=== PATIENT | female | born 1980 | race Caucasian/White ===

== ENCOUNTER 2020-12-16 07:43 | Emergency (ER) | payer MEDICAID, OTHER ==
[~2020-12-16] VITALS: Ht 165.1 cm; Wt 54.4 kg
--- NOTE | 2020-12-16 07:50 | NUR ---
AT BEDSIDE FOR ASSESSMENT
[2020-12-16] MEDS ORDERED: ASPIRIN (07:53)
[2020-12-16] MEDS ORDERED: IV NORMAL SALINE 1000 ML BAG IV ONE (08:00)
--- NOTE | 2020-12-16 08:06 | NUR ---
Patient refused blood draw and IV fluids at this time
--- NOTE | 2020-12-16 09:00 | NUR ---
Patient continues to refuse care and states she needs more time to decided whether she wants her blood drawn despite repetative explaining of risk and benefits by staff
[2020-12-16] MEDS ORDERED: CHLORDIAZEPOXIDE HCL 25 MG CAPSULE PO ONE (09:30)
[2020-12-16] MEDS ORDERED: CHLORDIAZEPOXIDE HCL 25 MG CAPSULE ONE (09:35)
--- NOTE | 2020-12-16 09:50 | NUR ---
Patient is AOx4, refusing all of MD's recommendation. AMA form was given by MD but patient refused to sign the AMA form as well. MD is aware.
--- NOTE | 2020-12-16 10:00 | NUR ---
Excessive anxiety noted, Md orders anti-anxiety medication, patient continues to refuse care
--- NOTE | 2020-12-16 11:01 | NUR ---
patient continues to refuse care but will not leave
--- NOTE | 2020-12-16 11:05 | NUR ---
Patient left facility to make a phone call and states she will be back in 5 min
--- NOTE | 2020-12-16 12:13 | NUR ---
Patient does not wish to proceed with medical care recommended by Dr. Cruz. Patient given information related to possible complications, up to and including , which could occur as a result of leaving the hospital at this time. Patient verbalizes understanding of risks involved due to leaving against medical advice. Patient has refused to sign AMA form.
[2020-12-16 12:17] VITALS: BP 106/62
[2020-12-16] MEDS ORDERED: SUMA100T16 PO (21:20)
[2020-12-16] MEDS ORDERED: NAPR-1164 PO (21:21)
== END 2020-12-16 12:17 | disposition left against medical advice (07) ==
LOC: ER 07:43
DX: R19.7 Diarrhea, unspecified (principal); R51.9 Headache, unspecified; F41.0 Panic disorder [episodic paroxysmal anxiety]; Z86.16 Personal history of COVID-19
CPT/HCPCS: 70450; A4663; J7030

== ENCOUNTER 2020-12-16 20:07 | Emergency (ER) | payer OTHER ==
[~2020-12-16] VITALS: Ht 165.1 cm; Wt 56.7 kg
[~2020-12-16 20:07] MED LIST: ASPIRIN
[2020-12-16] MEDS ORDERED: diphenhydrAMINE 50 MG/1 ML VIAL IV ONE (20:30)
[2020-12-16] MEDS ORDERED: METOCLOPRAMIDE HCL 10 MG/2 ML VIAL IV ONE (20:30)
[2020-12-16] MEDS ORDERED: IV NORMAL SALINE 1000 ML BAG IV ONE (20:30)
[2020-12-16] MEDS ORDERED: KETOROLAC TROMETHAMINE 30 MG INJ IVP ONE (20:30)
--- NOTE | 2020-12-16 20:30 | NUR ---
Patient refusing treatment suggested by the doctor, MD Xiong made aware.
[2020-12-16] MEDS ORDERED: SUMA100T16 PO (21:20)
[2020-12-16] MEDS ORDERED: NAPR-1164 PO (21:21)
[2020-12-16] MEDS ORDERED: diphenhydrAMINE 25 MG CAP PO ONE ×2 (21:30→21:34)
[2020-12-16] MEDS ORDERED: NAPROXEN 500 MG TABLET PO ONE (21:30)
[2020-12-16] MEDS ORDERED: SUMATRIPTAN SUCCINATE 50 MG TABLET PO ONE (21:30)
[2020-12-16] MEDS ORDERED: SUMATRIPTAN SUCCINATE 50 MG TABLET ONE (21:34)
[2020-12-16] MEDS ORDERED: NAPROXEN 500 MG TABLET ONE (21:35)
--- NOTE | 2020-12-16 21:40 | NUR ---
Patient discharged to home in stable condition. Written and verbal after care instructions given. Patient verbalizes understanding of instructions. Stressed follow up or return to ER for worsening s/s. Patient out of ER with steady gait, no acute signs of distress, VSS, all belongings taken, provided with a prescription.
[2020-12-16 21:57] VITALS: BP 140/81
== END 2020-12-16 21:57 | disposition home or self-care (01) ==
LOC: ER 20:07
DX: G43.909 Migraine, unspecified, not intractable, without status migrainosus (principal); Z88.8 Allergy status to other drugs, medicaments and biological substances; Z86.19 Personal history of other infectious and parasitic diseases
CPT/HCPCS: 99284; Q0163; A4663

== ENCOUNTER 2020-12-17 14:23 | Inpatient (IN) | payer OTHER ==
[~2020-12-17] VITALS: Ht 165.1 cm; Wt 56.7 kg
[~2020-12-17 14:23] MED LIST changes: +NAPR-1164 PO; +SUMA100T16 PO
--- NOTE | 2020-12-17 14:45 | NUR ---
at bedside for assessment
--- NOTE | 2020-12-17 14:50 | NUR ---
Lab at bedside for blood draw, patient refusing IV at this time
[2020-12-17 15:18] LABS: BASOPHILS % (AUTO) 0.2 % (0.0-2.0); HEMATOCRIT 35.6 % (31.2-41.9); HEMOGLOBIN 12.3 g/dL (10.9-14.3); LYMPHOCYTES # (AUTO) 1.2 K/uL (20.0-40.0); LYMPHOCYTES % (AUTO) 15.8 % (20.5-51.5); MEAN CORPUSCULAR HEMOGLOBIN 31.5 uug (24.7-32.8); MEAN CORPUSCULAR HGB CONC 34 g/dL (32.3-35.6); MEAN CORPUSCULAR VOLUME 91.5 fL (75.5-95.3); MONOCYTES # (AUTO) 0.7 K/uL (2.0-10.0); MONOCYTES % (AUTO) 8.4 % (0.0-11.0); NEUTROPHILS % (AUTO) 75.6 % (38.5-71.5); PLATELET COUNT (AUTO) 255 K/uL (179-408); RED BLOOD CELL COUNT(AUTO) 3.89 MIL/uL (3.63-4.92); WHITE BLOOD COUNT (AUTO) 7.9 K/uL (3.8-11.8)
[2020-12-17 15:25] LABS: CREATININE 0.8 mg/dL (0.6-1.3); POTASSIUM 3.7 mmol/L (3.5-5.1)
[2020-12-17] MEDS ORDERED: IOHEXOL 350 100 ML INFUS..BTL ONE (16:00)
[2020-12-17] MEDS ORDERED: IV NORMAL SALINE 250 ML IV ONE (16:00)
[2020-12-17] MEDS ORDERED: SWABABLE VALVE TRANSFER SET EA MC ONE (16:01)
--- NOTE | 2020-12-17 16:35 | NUR ---
Patient taken to get CTA of brain and carotids ar this time
[2020-12-17] MEDS ORDERED: IV NORMAL SALINE 500 ML BAG IV ONE (18:00)
[2020-12-17] MEDS ORDERED: ASPIRIN 325 MG TABLET PO ONE (18:00)
[2020-12-17] MEDS ORDERED: ASPIRIN 325 MG TABLET ONE (18:03)
--- NOTE | 2020-12-17 18:04 | NUR ---
No signs of acute distress noted, patient noted sitting in chair in room
--- NOTE | 2020-12-17 18:31 | NUR ---
Patient refusing aspirin 325mg and IV fluids at this time
[2020-12-17] MEDS ORDERED: ONDANSETRON 4 MG/2 ML VIAL IV PRN (19:00)
[2020-12-17] MEDS ORDERED: MAGNESIUM HYDROXIDE 30 ML LIQUID UDC PO PRN (19:00)
[2020-12-17] MEDS ORDERED: ACETAMINOPHEN 325 MG TABLET PO PRN (19:00)
[2020-12-17] MEDS ORDERED: HYDROCODONE/APAP 5-325MG TABLET PO PRN (19:00)
[2020-12-17] MEDS ORDERED: Z GUARD REMEDY PASTE 57 GM TUBE TOP PRN (19:00)
--- NOTE | 2020-12-17 19:23 | NUR ---
Patient does not wish to proceed with medical care recommended by Dr. Peters. Patient given information related to possible complications, up to and including , which could occur as a result of leaving the hospital at this time. Patient verbalizes understanding of risks involved due to leaving against medical advice. Patient has signed AMA form.
--- NOTE | 2020-12-17 20:00 | NUR ---
Pt stated she decided to stay and get admitted for the MRI tomorrow.
--- NOTE | 2020-12-17 21:40 | NUR ---
Report given to Nasrin CLEMENTS Tele.
--- NOTE | 2020-12-18 00:30 | NUR ---
PATIENT ARRIVED FROM ER VIA GURNEY ,PATIENT AAOX4.ORIENTED TO ROOM AND EQUIPMENT AND CALL [facility] .BELONGING INVENTORY DONE BY SOLUTIONS ARCHITECT AT B/S . V/S DONE WNL .PLACED HEART MONITOR PATIENT SR 70 ON THE HEART MONITOR .DENIES PAIN OR DISCOMFORT NO RESPIRATORY DISTRESS NOTED .
[2020-12-18 00:35] VITALS: BP 92/48
--- NOTE | 2020-12-18 00:45 | NUR ---
PATIENT PASSED SWALLOW EVALUATION ,ALERT AWAKE FOLLOW COMMANDS ABLE TO DRINK WATER WITH NO DROOLING.TOLERATED APPLE JUICES X2 ,ABLE TO SWALLOW ,HAD TUNA SANDWICHES ATE THE WHOLE SANDWICH WITH NO DIFFICULTY . HOB UP AND ADVISED PATIENT TO EAT SLOWLY AND TO CONCENTRATE EATING .
--- NOTE | 2020-12-18 01:31 | NUR ---
PATIENT NOTED WENT TO BATHROOM BY SELF ABLE TO WALK TO BATHROOM WITH STEADY GAIT . NOW SHE SAID SHE NEEDS A WHEELCHAIR OR TO BRING HER BACK TO BED . ASSISTED BACK TO BED.
--- NOTE | 2020-12-18 01:42 | NUR ---
CONNECTED BACK TO THE HEART MONITOR LEADS WHERE OFF ,ADVISED PATIENT TO USED THE CALL [facility], AND TO CALL FOR ASSISTANCE OR TO CALL FOR HELP LIKE GOING TO THE BATHROOM .
--- NOTE | 2020-12-18 06:29 | NUR ---
refused labs as per group product manager as per patient she wants to sleep and she can comeback at 0900.
[2020-12-18 08:00] VITALS: BP 109/67
--- NOTE | 2020-12-18 08:00 | NUR ---
Pt alert and oriented x 4. Pt ambulates with good balance. Call light is within reach. Pt denies any c/o pain.
[2020-12-18] MEDS ORDERED: ASPIRIN EC 81 MG TABLET.DR PO SCH (09:00)
[2020-12-18 09:12] LABS: *URINE HCG, QUAL NEG (NEGATIVE)
[2020-12-18] MEDS: ASPIRIN EC 81 MG TABLET.DR PO SCH ×2 (09:26→22:00)
--- NOTE | 2020-12-18 10:00 | NUR ---
Pt alert and oriented x4. Pt ambulatory with good balance. PT refused to have her MRI done and LAB works refused. Explained to pt purpose of lab and MRI test. Pt continues to refuse lab works. Pt states that she had her MRI done this past Saturday. Called [phone] no response and closed today. will f/u in am and notify next shift to f/u result.
--- NOTE | 2020-12-18 12:00 | NUR ---
Lorraine notified that pt refused am labs and MRI.
[2020-12-18 12:02] VITALS: BP 104/61
--- NOTE | 2020-12-18 13:30 | NUR ---
Pt c/o severe GARCIA on the occipital area of her head 11/12. Pt states that if she lay down in bed her head hurts more. Pt denies any dizziness. No drift noted. Smile equal. no weakness noted on UE's and LE's. Operational Intelligence Analyst strength5/5 equal both side. Jona leg strength 5/5 equal on both sides. Pt c/o nerve pain on right forearm. Pt's ROM WNL on UE's and LE's. Pt able to ambulate to bathroom. Pt A/O x4. TELE SNR no ectopy no st elevation. Pt able to differentiate dull and sharp sensations on her UE's and LE's. Addendum: 12/18/20 at 1752 by CARI MCDONOUGH RN B/P 107/73-hr 90- resp 18- temp 98.0
[2020-12-18] MEDS ORDERED: SUMATRIPTAN SUCCINATE 50 MG TABLET PO PRN (14:00)
--- NOTE | 2020-12-18 17:50 | NUR ---
PT c/o dizziness VSS b/p 101/61 - hr 83- resp 18- o2 sat 988% on r/a. No drift noted. Smile equal. no weakness noted on UE's and LE's. Utility Teller strength5/5 equal both side. Jona leg strength 5/5 equal on both sides. Pt c/o nerve pain on right forearm. Pt's ROM WNL on UE's and LE's. Pt able to ambulate with good balance inside her room. Pt A/O x4. TELE SNR no ectopy no st elevation. Pt able to differentiate dull and sharp sensations on her UE's and LE's. Instructed pt to stay in bed if shes feeling dizzy. PT states she feels better when she moves around.
[2020-12-18 20:06] VITALS: BP 92/68
[2020-12-19 00:38] VITALS: BP 100/62
--- NOTE | 2020-12-19 08:30 | NUR ---
PER THE ASSOCIATE TEAM PHYSICIAN PATIENT HAS REFUED HER LAB DRAW 3 TIMES DESPITE ALL EXPLAINATIONS WILL NOTIFY HER PROVIDER.
--- NOTE | 2020-12-19 09:00 | NUR ---
PATIENT CALLED FOR THE NURSE DID NOT GO TO SEE PATIENT EARLIER BECAUSE PER REPORT SHE DOES NOT WANT ANYONE IN HER ROOM BEFORE 929 SO WHEN I WENT IN AND SAW HER SHE STATED THAT SHE HAS BEEN HAVING SOME STROKE SYMPTOMS WHEN ASKED TO ELABORATE STATED THAT SHE HAS COVID BEFORE AND SHE READ IN THE INTERNET THAT HER SYMPTOMS OF PANIC ATTACKS AND ANXIETY FEELING LONESOME IS COVID SYMPTOMS AND THAT SOMEONE TOLD HER THAT SHE NEED ANTI PLATELETS SO NOTIFIED HER THAT DR MORA WILL BE COMING IN SOON AND WE WILL RUN IT BY HER THEN SHE IS THE ONLY PERSON THAT CAN GIVE ORDERS AND SHE EXPRESSED UNDERSTANDING
[2020-12-19] MEDS: ASPIRIN EC 81 MG TABLET.DR PO SCH (09:23)
--- NOTE | 2020-12-19 10:30 | NUR ---
PATIENT CALLED THE NURSE AND STATED THAT WHEN SHE WAS SITTING IN THE BATHROOM AND SHE ATTEMPTED TO GET UP AND SHE HIT THE LEFT SIDE OF HER HEAD ON THE HAND RAIL OBSERVED NO BRUISE OR BLEEDING NO OPEN AREA PATIENT REQUESTED ICE PACK GIVEN AND MADE COMFORTABLE.WILL INFORM DR MORA.
[2020-12-19 11:36] VITALS: BP 103/57
[2020-12-19] MEDS ORDERED: ASPI-618 PO (14:51)
[2020-12-19] MEDS ORDERED: RIFA300C4 PO (14:58)
[2020-12-19] MEDS ORDERED: CLAR-45 PO (14:59)
[2020-12-19] MEDS ORDERED: APIX5TAB PO (14:59)
[2020-12-19] MEDS ORDERED: HYDR200T4 PO (15:00)
[2020-12-19] MEDS ORDERED: IVER3TAB2 PO (15:02)
[2020-12-19] MEDS ORDERED: NORE0.3543 PO (15:07)
[2020-12-19] MEDS ORDERED: NORE5TAB3 PO (15:10)
--- NOTE | 2020-12-19 15:20 | NUR ---
CAROTID ULTRA SOUND COMPLETED ORDERED AND ITS NEGATIVE AT THIS TIME.
[2020-12-19 15:58] VITALS: BP 110/58
--- NOTE | 2020-12-19 17:01 | NUR ---
Management Liaison consultation received for CVA. Management Liaison to follow-up with the patient to complete assessment.
--- NOTE | 2020-12-19 17:10 | NUR ---
DR MORA HERE WITH ORDER FOR STAT MRI AND NOTED AWAITING FOR DUMP GROUNDS CHECKER TO SCHEDULE A TIME
--- NOTE | 2020-12-19 17:30 | NUR ---
COMPLAINING OF SEVERE PAIN IN HER HEAD OFFERED IMITREX ORDERED BUT SHE REFUSED TO TAKE IT STATED ITS NOT HEADACHE
--- NOTE | 2020-12-19 18:00 | NUR ---
ORDER CHANGED TO MRI BRAIN WITH AND WITHOUT CONTRAST LES AWARE AND PATIENT WILL BE PICKED UP ABOUT 1900 TODAY BUT THEN PATIENT STATED THAT SHE IS ALLERGIC TO CONTRAST AND WHEN ASKED WHAT TYPE OF ALLERGY STATED THAT SHE HAD DIZZINESS AND SWEATS AND IS UNABLE TO REMEMBER WHAT ELSE HAPPENED DR MORA NOTIFIED AND SHE STATED THAT IF SHE IS NOT ABLE TO TOLERATE THE CONTRAST THEN SHE SHOULD THEN DO ONLY MRI .
--- NOTE | 2020-12-19 18:44 | NUR ---
NOTED PATIENT TO BE VERY ANXIOUS AND SEEMS TO BE HAVING PANIC ATTACK AND DR MORA TOLD THE GYM INSTRUCTOR THAT SHE COULD ORDER ATIVAN TO HELP HER RELAX BUT PATIENT REFUSED STATED SHE WILL NOT TAKE ANY ATIVAN
--- NOTE | 2020-12-19 19:40 | NUR ---
Pt left to [facility] for [facility]
--- NOTE | 2020-12-19 22:08 | NUR ---
Pt returned from MRI at [facility] in stable condition.
--- NOTE | 2020-12-19 23:00 | NUR ---
Pt anxious and requesting MRI results to be given now. Pt informed that provider will go over results when we get them. She agreed and went to bed.
--- NOTE | 2020-12-20 05:40 | NUR ---
Pt slept throughout the night. Denies chest pain or SOB. Refused vitals and AM labs. Educated on importance of vitals and labwork, pt still declined. Safety and comfort provided. Call light within reach. No other issues or concerns at this time, will endorse to day shift.
--- NOTE | 2020-12-20 07:30 | NUR ---
Sleeping. With instruction/note not to disturb/open the door
[2020-12-20] MEDS: ASPIRIN EC 81 MG TABLET.DR PO SCH (09:00)
--- NOTE | 2020-12-20 09:30 | NUR ---
Dr. Beebe seen and examined patient, discussed result and plan of care. Cleared for discharge
[2020-12-20 11:45] VITALS: BP 99/58
--- NOTE | 2020-12-20 14:00 | NUR ---
CM informed me that patient requested transfer to [facility], CM submitted request
[2020-12-20 15:31] VITALS: BP 94/54
--- NOTE | 2020-12-20 16:03 | NUR ---
Trench Digging Machine Operator Consultation: Trench Digging Machine Operator consultation requested for Transient Ischemic Attack. Patient is a 40 year old female. Per ED physician's note, patient presented to the ED on 12/17/20 with c/o facial paresthesia, along with right arm and right leg paresthesia. This LICENSED OCCUPATIONAL THERAPIST met with the patient in her hospital room. Patient is awake, alert, oriented receptive to meeting with this LICENSED OCCUPATIONAL THERAPIST. Patient lives at home ([address] [place] [address], [place] [address]) with her mother, step-father, and 9 year old son. Patient reports that she is independent with her ADL's. Patient's psychosocial needs were explored, and patient stated that she is happy that all her tests came back negative, but may go to [facility] for further testing. Patient stated that at this time, she did not need any additional resources. This LICENSED OCCUPATIONAL THERAPIST administered the PHQ-9, and patient scored a 0. Patient stated not having any changes in her mood or behavior over the last 2 weeks. Patient did express feeing anxious over the last couple of days because of now knowing why she was having right sided weakness, however expressed being relieved that all the tests came back negative. This LICENSED OCCUPATIONAL THERAPIST allowed patient to express her feelings, and patient stated "it's not a stroke, I had COVID over 1 month ago, and I know that this is just a long-term effect of the COVID". Discharge plans were discussed, and patient stated that she would be returning home. Patient stated that either her father (Jb Wilson, ) or her son's father, would be able to pick her up from the hospital. At this time, no further SS interventions are needed, however social service coordinator will remain available, as needed.
[2020-12-20] MEDS ORDERED: GADOTERATE MEGLUMINE 5 MMOL/10 ML VIAL IV ONE (16:31)
--- NOTE | 2020-12-20 18:33 | NUR ---
Still awaiting response from [facility]. Patient comfortable, not in distress
--- NOTE | 2020-12-20 20:36 | NUR ---
Patient in bed AALOx4.Calm and pleasant. Denies Pain.No SOB.On RA.Patient c/o her IV site.Upon assessment Iv patent and intact on right FA 20g.Flushes well. No s/s infiltration.VSS.Patient requesting not to disturb her until the next morning . Instructed patient to use call light for assistance.Continue safety measures.
[2020-12-20 20:37] VITALS: BP 103/69
[2020-12-21] MEDS: ASPIRIN EC 81 MG TABLET.DR PO SCH (09:09)
[2020-12-21] MEDS ORDERED: DIAZ5TAB PO (11:51)
--- NOTE | 2020-12-21 15:00 | NUR ---
During her stay, pt kept her door closed, refusing to have her blood draw. During discharge process, he would give different reason to stay longer, stated would like to arrange for AirBnB and ride. she had overly concerned of her health, she stated if hunger she would have episode and asked for tuna sandwich and apple juice, promptly given. Informed charge nurse and supervisor fleshing of he concerned. Pt have conversation with Dr. Randolph of her concern. Pt discharge with all belongings, all paperwork signed and in chart with copy given to he. Medications list given. Medication given as ordered. Pt left in stable condition. IV and name band removed. Discharge and teaching completed. Stated that she will take an Uber ride.
--- NOTE | 2020-12-21 15:10 | NUR ---
Clinical Social Work Note Met with patient who was very anxious about her discharge. Patient is "fearful of have a TIA or seizure. She is alert and oriented x4. Patient appears to have developed an anxiety disorder regarding her condition. Patient says " I need help, I cannot be alone". She says she has a psychotherapy appointment tomorrow. Patient is exhibiting learned helplessness currrently. She left the hospital but does need her anxiety addressed or she will continue to frequent ED for physical symptoms. Patient welcomed support and also requested home health referrals and was advised to ask her [facility] doctor for referrals. Patient's premorbid functioning is unclear. She states she developed all these symptoms after COVID. She did agree with this development writer that she has catastrophic worry about her health. 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
== END 2020-12-21 15:00 | disposition home or self-care (01) | DRG 58 ==
LOC: ER 14:23 → TELE3 22:20 → MEDSURG3 12-19 11:10
PROVIDERS: ADMIT Student in an Organized Health Care Education/Training Program; ATTEND Internal Medicine
DX: R20.2 Paresthesia of skin (principal); F41.9 Anxiety disorder, unspecified; G83.21 Monoplegia of upper limb affecting right dominant side; Z86.16 Personal history of COVID-19; Z87.898 Personal history of other specified conditions; Z86.19 Personal history of other infectious and parasitic diseases; R53.1 Weakness; R29.818 Other symptoms and signs involving the nervous system; Z20.822 Contact with and (suspected) exposure to COVID-19
CPT/HCPCS: 36415; 70030-TC; 70496; 70553; 84703; 85025; 85730; 93005; 93307; 93880; A4663; A9575; G0378; J7030; J7050; Q9967

== ENCOUNTER 2023-04-16 15:59 | Emergency (ER) | payer OTHER ==
[~2023-04-16] VITALS: Ht 165.1 cm; Wt 56.7 kg
[~2023-04-16 15:59] MED LIST changes: +ASPI-618 PO; -ASPIRIN; +DIAZ5TAB PO; +HYDR200T4 PO; +NORE0.3543 PO; +NORE5TAB3 PO
[2023-04-16 18:58] VITALS: BP 120/67; O2SAT 99
== END 2023-04-16 18:59 | disposition home or self-care (01) ==
LOC: ER 18:19
DX: F41.8 Other specified anxiety disorders (principal); R20.2 Paresthesia of skin; R25.1 Tremor, unspecified; R07.89 Other chest pain; G43.909 Migraine, unspecified, not intractable, without status migrainosus; Z88.8 Allergy status to other drugs, medicaments and biological substances; Z79.82 Long term (current) use of aspirin; Z79.899 Other long term (current) drug therapy
CPT/HCPCS: 71045; 93005; A4663